=== PATIENT | male | born 1975 | race Caucasian/White ===

== ENCOUNTER 2017-01-13 11:46 | Emergency (ER) | payer SELFPAY ==
[2017-01-13 12:01] VITALS: BP 165/100
[2017-01-13] MEDS ORDERED: TRAM50TA PO (12:06)
[2017-01-13] MEDS ORDERED: PENI500T PO (12:06)
[2017-01-13] MEDS ORDERED: IBUP-1007 PO (12:06)
--- NOTE | 2017-01-13 12:07 | PHYS DOC ---
Adult General Chief Complaint Chief Complaint: DENTAL PROBLEM HPI HPI Patient is a 41 year old presents to the emergency department with complaints of dental pain and facial swelling. He states he's had dental pain for 2 weeks and developed Today. She Has Not Been to Dentist Says "I Cannot Afford It". Patient Does Report He Is a Diabetic currently using medications as directed. He denies polyuria, polydipsia, abdominal pain, headache, lightheadedness, nausea, vomiting, or breath. Review of Systems Review of Systems Constitutional: Denies fever or chills [] Eyes: Denies change in visual acuity, redness, or eye pain [] HENT: Facial swelling and dental pain Respiratory: Denies cough or shortness of breath [] Cardiovascular: No additional information not addressed in HPI [] GI: Denies abdominal pain, nausea, vomiting, bloody stools or diarrhea [] : Denies dysuria or hematuria [] Musculoskeletal: Denies back pain or joint pain [] Integument: Denies rash or skin lesions [] Neurologic: Denies headache, focal weakness or sensory changes [] Endocrine: Denies polyuria or polydipsia [] Physical Exam Physical Exam Constitutional: Well developed, well nourished, no acute distress, non-toxic appearance. [] HENT: Normocephalic, atraumatic, bilateral external ears normal, oropharynx moist, diffuse dental caries, right gingival erythema swelling or fluctuance. Minimal swelling to the right mandible. It is without erythema. Eyes: PERRLA, EOMI, conjunctiva normal, no discharge. [] Neck: Normal range of motion, no tenderness, supple, no stridor. [] Cardiovascular:Heart rate regular rhythm, no murmur [] Lungs & Thorax: Bilateral breath sounds clear to auscultation [] EKG EKG [] Radiology/Procedures Radiology/Procedures [] Course & Med Decision Making Course & Med Decision Making Pertinent Labs and Imaging studies reviewed. (See chart for details) [] Dragon Disclaimer Dragon Disclaimer This electronic medical record was generated, in whole or in part, using a voice recognition dictation system. Departure Departure Impression: Primary Impression: Dental abscess Disposition: 01 HOME, SELF-CARE Condition: STABLE Referrals: NO PCP (PCP) Patient Instructions: Dental Abscess Additional Instructions: Salt water gargle solution, swish and spit as needed. Follow-up with the dentist of your choice within the next week. Scripts Ibuprofen (IBUPROFEN) 600 Mg Tablet 600 MG PO PRN Q6HRS Y for INFLAMMATION, #20 TAB Prov: ALLIE JACOB APRN 01/13/17 Tramadol Hcl (TRAMADOL HCL) 50 Mg Tablet 1 TAB PO PRN Q6HRS Y for PAIN, #12 TAB Prov: ALLIE JACOB APRN 01/13/17 Penicillin V Potassium (PENICILLIN V POTASSIUM) 500 Mg Tablet 1 TAB PO QID, #40 TAB Prov: ALLIE JACOB APRN 01/13/17 ALLIE JACOB APRN Jan 13, 2017 12:07
== END 2017-01-13 12:14 | disposition home or self-care (01) ==
LOC: ER 11:46
DX: K04.7 Periapical abscess without sinus (principal); K02.9 Dental caries, unspecified; E11.9 Type 2 diabetes mellitus without complications; Z79.899 Other long term (current) drug therapy
CPT/HCPCS: 99283

== ENCOUNTER 2017-05-15 18:03 | Emergency (ER) | payer SELFPAY ==
[~2017-05-15] VITALS: Ht 193 cm; Wt 106.6 kg
[~2017-05-15 18:03] MED LIST: IBUP-1007 PO; PENI500T PO; TRAM50TA PO
[2017-05-15] MEDS ORDERED: KETOROLAC 30 MG/ML INJ. IV ONE (19:00)
[2017-05-15] MEDS ORDERED: CLINDAMYCIN 600MG PREMIX 50 ML IV ONE (19:00)
[2017-05-15] MEDS ORDERED: CONTRAST GIVEN MC PRN (19:15)
[2017-05-15] MEDS ORDERED: IOHEXOL 300 MG/ML 75 ML VIAL IV ONE (19:15)
[2017-05-15 19:45] LABS: BASO % 0 % (0-3); EOS % 1 % (0-3); HEMATOCRIT 47.7 % (39.0-53.0); HEMOGLOBIN 16.5 g/dL (13.0-17.5); LYMPH # 2.8 x10^3/uL (1.0-4.8); LYMPH % 22 % (24-48); MEAN CORPUSCULAR HEMOGLOBIN 32 pg (25-35); MEAN CORPUSCULAR HGB CONC 35 g/dL (31-37); MEAN CORPUSCULAR VOLUME 91 fL (79-100); MONO % 5 % (0-9); NEUT % 72 % (31-73); PLATELET COUNT 248 x10^3/uL (140-400); RED BLOOD COUNT 5.23 x10^6/uL (4.30-5.70); RED CELL DISTRIBUTION WIDTH 12.7 % (11.5-14.5); WHITE BLOOD COUNT 12.8 x10^3/uL (4.0-11.0)
[2017-05-15 19:54] LABS: CALCIUM 9.2 mg/dL (8.5-10.1); CREATININE 1.1 mg/dL (0.7-1.3); GFR 73.4; POTASSIUM 3.9 mmol/L (3.5-5.1)
--- NOTE | 2017-05-15 20:02 | PHYS DOC ---
Past Medical History Past Medical History: Diabetes-Type I Past Surgical History: Appendectomy, Other Additional Past Surgical Histo: R ARM, BACK, exploratory lap, pancreas removal Additional Information: 1 ppd Alcohol Use: Rarely Drug Use: None Adult General Chief Complaint Chief Complaint: DENTAL PROBLEM HPI HPI Patient is a 42 year old male presents to the emergency department with complaints of a dental abscess. Patient states he has chronic dental caries and has intermittent abscesses. He states 3 days ago he developed discomfort to the left upper teeth and today noted increased facial swelling. He denies blurred vision, loss of vision or eye pain, he denies headache, nausea, vomiting. He denies neck pain. Review of Systems Review of Systems Constitutional: Denies fever or chills [] Eyes: Denies change in visual acuity, redness, or eye pain [] HENT: Denies nasal congestion or sore throat, dental pain, facial swelling [] Respiratory: Denies cough or shortness of breath [] Cardiovascular: No additional information not addressed in HPI [] GI: Denies abdominal pain, nausea, vomiting, bloody stools or diarrhea [] : Denies dysuria or hematuria [] Musculoskeletal: Denies back pain or joint pain [] Integument: Denies rash or skin lesions [] Neurologic: Denies headache, focal weakness or sensory changes [] Endocrine: Denies polyuria or polydipsia [] Current Medications Current Medications Current Medications Medications (Trade) Dose Ordered Sig/[facility] Start Time Stop Time Status Last Admin Dose Admin Clindamycin Phosphate 50 ml @ 100 mls/hr 1X ONCE 05/15/17 19:00 05/15/17 19:29 DC 05/15/17 19:30 100 MLS/HR Info (Do NOT chart on this entry -- for MONITORING) 1 each PRN DAILY PRN 05/15/17 19:15 05/17/17 19:14 Iohexol (Omnipaque 300 Mg/ml) 75 ml 1X ONCE 05/15/17 19:15 05/15/17 19:16 DC 05/15/17 19:15 75 ML Ketorolac Tromethamine (Toradol) 30 mg 1X ONCE 05/15/17 19:00 05/15/17 19:01 DC 05/15/17 19:42 30 MG Allergies Allergies Allergies Coded Allergies Type Severity Reaction Last Updated Verified No Known Drug Allergies 01/13/17 No Physical Exam Physical Exam Constitutional: Well developed, well nourished, no acute distress, non-toxic appearance. [] HENT: Normocephalic, atraumatic, bilateral external ears normal, oropharynx moist, no oral exudates, nose normal. Diffuse dental caries, left upper gingiva with erythema, no pointing or fluctuance. Patient does have swelling that extends on the left side of the face above the nasolabial fold but is not inclusive of her oral area. [] Eyes: PERRLA, EOMI without pain, conjunctiva normal, no discharge. Funduscopic exam benign [] Neck: Normal range of motion, no tenderness, supple without lymphadenopathy, no stridor. [] Cardiovascular:Heart rate regular rhythm, no murmur [] Lungs & Thorax: Bilateral breath sounds clear to auscultation [] Skin: Warm, dry, no erythema, no rash. [] Back: No tenderness, no CVA tenderness. [] Extremities: No tenderness, no cyanosis, no clubbing, ROM intact, no edema. [] Neurologic: Alert and oriented X 3, normal motor function, normal sensory function, no focal deficits noted. [] Psychologic: Affect normal, judgement normal, mood normal. [] Current Patient Data Vital Signs Vital Signs Date Time Temp Pulse Resp B/P (MAP) Pulse Ox O2 Delivery O2 Flow Rate FiO2 05/15/17 18:39 98.1 97 16 98 Room Air 98.1 Lab Values Laboratory Tests Test 05/15/17 19:30 White Blood Count 12.8 x10^3/uL (4.0-11.0) H Red Blood Count 5.23 x10^6/uL (4.30-5.70) Hemoglobin 16.5 g/dL (13.0-17.5) Hematocrit 47.7 % (39.0-53.0) Mean Corpuscular Volume 91 fL (79-100) Mean Corpuscular Hemoglobin 32 pg (25-35) Mean Corpuscular Hemoglobin Concent 35 g/dL (31-37) Red Cell Distribution Width 12.7 % (11.5-14.5) Platelet Count 248 x10^3/uL (140-400) Neutrophils (%) (Auto) 72 % (31-73) Lymphocytes (%) (Auto) 22 % (24-48) L Monocytes (%) (Auto) 5 % (0-9) Eosinophils (%) (Auto) 1 % (0-3) Basophils (%) (Auto) 0 % (0-3) Neutrophils # (Auto) 9.2 x10^3uL (1.8-7.7) H Lymphocytes # (Auto) 2.8 x10^3/uL (1.0-4.8) Monocytes # (Auto) 0.7 x10^3/uL (0.0-1.1) Eosinophils # (Auto) 0.2 x10^3/uL (0.0-0.7) Basophils # (Auto) 0.0 x10^3/uL (0.0-0.2) Sodium Level 141 mmol/L (136-145) Potassium Level 3.9 mmol/L (3.5-5.1) Chloride Level 103 mmol/L (98-107) Carbon Dioxide Level 32 mmol/L (21-32) Anion Gap 6 (6-14) Blood Urea Nitrogen 12 mg/dL (8-26) Creatinine 1.1 mg/dL (0.7-1.3) Estimated GFR (Cockcroft-Gault) 73.4 Glucose Level 242 mg/dL (70-99) H Calcium Level 9.2 mg/dL (8.5-10.1) Laboratory Tests 05/15/17 19:30 Laboratory Tests 05/15/17 19:30 EKG EKG [] Radiology/Procedures Radiology/Procedures CT facial with contrast reviewed by Dr. Alexis Sanz, radiologist,[] reveal a left periorbital M left facial soft tissue swelling. There is a small soft tissue abscess of the left maxillary region that measures 19 mm in vertical dimension and 7 mm in transverse dimension and 6 mm in AP dimension abscesses adjacent to multiple caries of the maxillary teeth, left maxillary sinusitis with air-fluid level. Course & Med Decision Making Course & Med Decision Making Pertinent Labs and Imaging studies reviewed. (See chart for details) [] Dragon Disclaimer Dragon Disclaimer This electronic medical record was generated, in whole or in part, using a voice recognition dictation system. Departure Departure Impression: Primary Impression: Dental abscess Disposition: 01 HOME, SELF-CARE Condition: STABLE Referrals: NO PCP (PCP) [facility] Patient Instructions: Dental Abscess Scripts Tramadol Hcl (TRAMADOL HCL) 50 Mg Tablet 50 MG PO Q6H Y for PAIN, #12 TAB 0 Refills Prov: ALLIE JACOB APRN 05/15/17 Clindamycin Hcl (CLINDAMYCIN HCL) 300 Mg Capsule 300 MG PO QID, #40 CAP Prov: ALLIE JACOB APRN 05/15/17 ALLIE JACOB APRN May 15, 2017 20:02
--- NOTE | 2017-05-15 21:15 | RAD ---
MAXILLOFACIAL CT WITH CONTRAST Clinical indications: Left-sided facial swelling and pain. Dental abscess with periorbital swelling. TECHNIQUE: After IV infusion of 70 mL Omnipaque 300, helical CT scanning of the facial bones and face was performed. Multiplanar 2-D reconstructions were generated. PQRS compliance Statement One or more of the following individualized dose reduction techniques were utilized for this study: 1. Automated exposure control 2. Adjustment of the mA and/or kV according to patient size 3. Use of iterative reconstruction technique FINDINGS: There is mild periorbital preseptal soft tissue edema. There is mild subcutaneous soft tissue edema of left side of the face. There is streaking artifact related to metallic dental hardware. This does obscure the adjacent soft tissues. There is some soft tissue swelling adjacent to the left mandible and left maxilla. There is a small soft tissue abscess adjacent to the left side of the maxilla containing air and fluid. This is best seen on coronal image 11. This measures 19 mm in vertical dimension and 7 mm in transverse dimension and 6 mm in AP dimension. This is adjacent to multiple caries of the maxillary teeth. There is multiple caries of the mandibular teeth as well especially the lower right third molar which is almost completely eroded with periapical disease. Otherwise no outright osteolytic process is seen. There is moderate circumferential mucosal thickening of the left maxillary sinus. No air-fluid level is seen here. The ethmoid and frontal sinuses are clear. There is a mucous retention cyst of the floor of the left sphenoid sinus measuring 19 mm. IMPRESSION: Left periorbital and left facial soft tissue swelling. There is a small soft tissue abscess of the left maxillary region with measurements discussed above. This is in association with an area of multiple dental caries of the maxillary teeth. Left maxillary sinusitis without air-fluid level. Electronically signed by: Alexis Sanz MD (05/15/2017 9:12 PM) [facility]
[2017-05-15 21:30] VITALS: BP 143/95
[2017-05-15] MEDS ORDERED: TRAM50TA PO (21:31)
[2017-05-15] MEDS ORDERED: CLIN300C8 PO (21:31)
== END 2017-05-15 21:35 | disposition home or self-care (01) ==
LOC: ER 18:03
DX: K04.7 Periapical abscess without sinus (principal); K02.9 Dental caries, unspecified; J32.0 Chronic maxillary sinusitis; E10.9 Type 1 diabetes mellitus without complications; F17.200 Nicotine dependence, unspecified, uncomplicated; Z90.49 Acquired absence of other specified parts of digestive tract
CPT/HCPCS: 36415; 70487; 80048; 85025; 96365; 96375; 99285; J1885; J3490; Q9967